=== PATIENT | female | born 1990 | race Two or more races ===

== ENCOUNTER 2018-03-25 14:29 | Outpatient (CLI) | payer MEDICAID ==
[~2018-03-25] VITALS: Ht 160 cm; Wt 121.0 kg
[~2018-03-25 14:29] MED LIST: IBUP-1222 PO
[2018-03-25 15:05] VITALS: BP 143/84
== END 2018-03-25 15:26 | disposition home or self-care (01) ==
LOC: LDOP 14:29
PROVIDERS: ATTEND Obstetrics & Gynecology Maternal & Fetal Medicine
DX: O26.893 Other specified pregnancy related conditions, third trimester (principal); R10.9 Unspecified abdominal pain; R11.0 Nausea; Z3A.00 Weeks of gestation of pregnancy not specified
CPT/HCPCS: 59025; 99201; G0463

== ENCOUNTER 2018-03-30 20:03 | Inpatient (IN) | payer MEDICAID ==
[~2018-03-30] VITALS: Ht 162.6 cm; Wt 122.0 kg
[2018-03-30] MEDS ORDERED: D5%-LACTATED RINGERS 1,000 ML IV SCH (20:19)
[2018-03-30] MEDS ORDERED: OXYTOCIN 30U/ 0.9% NaCL 500ML 500 ML IV ONE (20:19)
[2018-03-30] MEDS ORDERED: OXYTOCIN 30U/ 0.9% NaCL 500ML 500 ML IV PRN (20:19)
[2018-03-30] MEDS ORDERED: NEWBORN KIT ONE (20:26)
[2018-03-30] MEDS ORDERED: FENTANYL PF 100 MCG/2ML IVPush PRN (20:30)
[2018-03-30] MEDS ORDERED: FENTANYL PF 100 MCG/2ML IV PRN (20:30)
[2018-03-30] MEDS ORDERED: PLEASE ENTER HEIGHT AND WEIGHT MC SCH (20:30)
[2018-03-30] MEDS ORDERED: ONDANSETRON 2MG/ML, 2ML IVPush PRN (20:30)
[2018-03-30 20:39] LABS: BASOPHILS # (AUTO) 0.05 x10^3/uL (0-0.1); BASOPHILS % (AUTO) 0 % (0-1); EOSINOPHILS # (AUTO) 0.02 x10^3/uL (0-0.4); EOSINOPHILS % (AUTO) 0 % (1-7); LYMPHOCYTES # (AUTO) 2.87 x10^3/uL (1-3.4); LYMPHOCYTES % (AUTO) 27 % (22-44); MD NO; MEAN CORPUSCULAR HEMOGLOBIN 30.9 pg (27.0-34.8); MEAN CORPUSCULAR HGB CONC 33.8 g/dL (32.4-35.8); MEAN CORPUSCULAR VOLUME 91.3 fL (80-100); MEAN PLATELET VOLUME 9.4 fL (7.4-10.4); MONOCYTES # (AUTO) 0.38 x10^3/uL (0.2-0.8); MONOCYTES % (AUTO) 4 % (2-9); NEUTROPHILS # (AUTO) 7.44 x10^3/uL (1.8-6.8); NEUTROPHILS % (AUTO) 69 % (42-75); PLATELET COUNT 241 x10^3/uL (130-400); RED BLOOD COUNT 3.72 x10^6/uL (3.82-5.3); RED CELL DISTRIBUTION WIDTH 14.2 % (9.6-15.2)
[2018-03-30] MEDS ORDERED: OXYTOCIN 30U/ 0.9% NaCL 500ML 500 ML ONE (20:46)
[2018-03-30] MEDS: LACTATED RINGERS 1,000 ML IV SCH (20:58)
[2018-03-30] MEDS ORDERED: BUPIVACAINE/PF 0.25% ONE (23:38)
[2018-03-30] MEDS ORDERED: FENTANYL/BUPIV./NS/PF 250 ML EPIDCONT ONE (23:38)
[2018-03-30] MEDS ORDERED: LIDOCAINE/PF 1.5%-EPI 1:200K, 30ML ONE (23:41)
[2018-03-31] MEDS: LACTATED RINGERS 1,000 ML IV SCH (00:03)
[2018-03-31] MEDS ORDERED: FENTANYL/BUPIV./NS/PF 250 ML EPIDCONT SCH (00:19)
[2018-03-31] MEDS ORDERED: LACTATED RINGERS 1,000 ML IV SCH (00:19)
[2018-03-31] MEDS ORDERED: LACTATED RINGERS 1,000 ML IVBOLUS PRN (00:30)
[2018-03-31] MEDS ORDERED: DIPHENHYDRAMINE 50 MG/ML, 1ML IVPush PRN (00:30)
[2018-03-31] MEDS ORDERED: NALOXONE 0.4 MG/ML, 1ML IVPush PRN (00:30)
[2018-03-31] MEDS ORDERED: EPHEDRINE 50 MG/ML, 1ML IVPush PRN (00:30)
[2018-03-31] MEDS ORDERED: ONDANSETRON 2MG/ML, 2ML IVPush PRN (00:30)
[2018-03-31] MEDS ORDERED: LIDOCAINE/PF 1%, 30ML ONE (07:15)
[2018-03-31] MEDS ORDERED: MISOPROSTOL 200 MCG TABLET ONE (07:15)
[2018-03-31] MEDS ORDERED: TERBUTALINE 1 MG/ML, 1ML ONE (10:06)
[2018-03-31] MEDS: OXYTOCIN 30U/ 0.9% NaCL 500ML 500 ML IV SCH ×2 (10:21→20:26)
[2018-03-31] MEDS ORDERED: IBUPROFEN 600 MG TABLET PO PRN (10:30)
[2018-03-31] MEDS ORDERED: OXYcodone/APAP 5/325MG TABLET PO PRN ×2 (10:30)
[2018-03-31] MEDS ORDERED: MISOPROSTOL 200 MCG TABLET PR PRN (10:30)
[2018-03-31] MEDS ORDERED: ONDANSETRON 2MG/ML, 2ML IV PRN (10:30)
[2018-03-31] MEDS ORDERED: DOCUSATE 100 MG CAPSULE PO PRN (10:30)
[2018-03-31] MEDS ORDERED: TERBUTALINE 1 MG/ML, 1ML IV ONE ×2 (11:00)
[2018-03-31 12:56] VITALS: BP 126/74
[2018-03-31 16:30] VITALS: BP 122/74
[2018-03-31 17:17] LABS: BASOPHILS # (AUTO) 0.08 x10^3/uL (0-0.1); BASOPHILS % (AUTO) 1 % (0-1); EOSINOPHILS # (AUTO) 0.06 x10^3/uL (0-0.4); EOSINOPHILS % (AUTO) 0 % (1-7); LYMPHOCYTES # (AUTO) 2.48 x10^3/uL (1-3.4); LYMPHOCYTES % (AUTO) 16 % (22-44); MD NO; MEAN CORPUSCULAR HEMOGLOBIN 30.9 pg (27.0-34.8); MEAN CORPUSCULAR HGB CONC 33.4 g/dL (32.4-35.8); MEAN CORPUSCULAR VOLUME 92.5 fL (80-100); MEAN PLATELET VOLUME 9.4 fL (7.4-10.4); MONOCYTES % (AUTO) 5 % (2-9); NEUTROPHILS # (AUTO) 12.62 x10^3/uL (1.8-6.8); NEUTROPHILS % (AUTO) 79 % (42-75); PLATELET COUNT 238 x10^3/uL (130-400); RED BLOOD COUNT 3.66 x10^6/uL (3.82-5.3); RED CELL DISTRIBUTION WIDTH 14.2 % (9.6-15.2)
[2018-03-31 20:00] VITALS: BP 121/77
[2018-03-31] MEDS ORDERED: DIPH,PERTUSS(ACELL),TET VAC/PF NC IM-VACC ONE (21:10)
[2018-04-01] VITALS: BP 120/75
[2018-04-01] MEDS: OXYTOCIN 30U/ 0.9% NaCL 500ML 500 ML IV SCH (06:26)
[2018-04-01 08:15] VITALS: BP 124/80
[2018-04-01] MEDS ORDERED: PRENATAL VIT/IRON/FA 1 EACH TABLET PO SCH (09:00)
[2018-04-01] MEDS ORDERED: IBUP-1222 PO (09:53)
[2018-04-01] MEDS ORDERED: OXYC-302 PO (09:54)
== END 2018-04-01 12:22 | disposition home or self-care (01) | DRG 775 ==
LOC: LDOP 20:03 → LDIP 20:23 → 2NW 03-31 12:10
PROVIDERS: ADMIT Obstetrics & Gynecology Maternal & Fetal Medicine; ATTEND Obstetrics & Gynecology Maternal & Fetal Medicine
PROC: 10E0XZZ Delivery of Products of Conception, External Approach (ICD-10-PCS; principal; 2018-03-31)
PROC: 3E0R3BZ Introduction of Anesthetic Agent into Spinal Canal, Percutaneous Approach (ICD-10-PCS; 2018-03-31)
PROC: 00HU33Z Insertion of Infusion Device into Spinal Canal, Percutaneous Approach (ICD-10-PCS; 2018-03-31)
DX: O76 Abnormality in fetal heart rate and rhythm complicating labor and delivery (principal); Z37.0 Single live birth; Z3A.40 40 weeks gestation of pregnancy; Z23 Encounter for immunization
CPT/HCPCS: 36415; 85025; 86850; 86900; J3490; J2590; J3010; J3105; J7120